=== PATIENT | female | born 1965 | race Caucasian/White ===

== ENCOUNTER 2017-11-23 20:52 | Emergency (ER) | payer OTHER ==
[2017-11-23] MEDS ORDERED: CYCLOBENZAPRINE 10 MG TABLET PO STA (21:41)
[2017-11-23] MEDS ORDERED: HYDROcod/ACETAM 5/325 MG TABLET PO STA (21:41)
--- NOTE | 2017-11-23 21:47 | ED Physician Documentation ---
PD HPI Fall - Stated complaint Stated Complaint: SOA/RIB INJ/PX - Chief complaint Chief Complaint: Back Pain - History obtained from History obtained from: Patient - History of Present Illness Mechanism of injury: Slipped Fall distance: Standing position Where injury occurred: Home Timing - onset: How many weeks ago (3) Injury(ies) location: Back (lower R ribs and back) Pain level max: 8 Pain level now: 8 Quality of pain: Pain, Throbbing, Aching Associated symptoms: No: LOC, AMS, Amnesia, Neck pain, Weakness, Paresthesias, Dyspnea, Nausea / vomiting, Hematemesis, Abdominal distension Symptoms improve with: Rest Worsens with: Movement, Palpation - Additional information Additional information: Patient is a 52-year-old female who presents to the emergency department with right-sided flank pain after a fall approximately 3 weeks ago. She states that it did hurt initially, but has become worse over the past few days. Does have a long history of chronic back pain. States that she is concerned that she may have broken a rib. Review of Systems Constitutional: denies: Fever, Chills Throat: denies: Sore throat Cardiac: denies: Palpitations GI: denies: Abdominal Pain, Vomiting, Diarrhea Skin: denies: Rash Musculoskeletal: denies: Neck pain, Back pain Neurologic: denies: Focal weakness, Numbness, Headache PD PAST MEDICAL HISTORY - Past Medical History Past Medical History: Yes GI: Other Musculoskeletal: Chronic back pain - Past Surgical History Past Surgical History: Yes General: Appendectomy Ortho: Other Cardiovascular: Coronary stent HEENT: Tonsil/Adenoidectomy - Present Medications Home Medications: Ambulatory Orders Medication Instructions Recorded Confirmed Aspirin [Jane Chewable] 81 mg PO 11/19/15 Atorvastatin [Lipitor] 10 mg PO DAILY 11/19/15 11/19/15 Cetirizine HCl [Zyrtec] 10 mg PO 11/19/15 Clopidogrel [Plavix] 75 mg PO DAILY 11/19/15 11/19/15 Levothyroxine [Synthroid] 125 mcg PO QDAC 11/19/15 11/19/15 Lisinopril 11/19/15 Metoprolol Succinate mg PO 11/19/15 Montelukast Sodium [Singulair] 4 mg PO 11/19/15 Cyclobenzaprine [Flexeril] 10 mg PO TID PRN #20 tablet 11/23/17 Hydrocodone/Acetaminophen 1 - 2 each PO Q6H PRN #14 tablet 11/23/17 [Hydrocodon-Acetaminophen 5-325] - Allergies Allergies/Adverse Reactions: Allergies Allergy/AdvReac Type Severity Reaction Status Date / Time No Known Drug Allergies Allergy Verified 11/23/17 21:06 - Social History Does the pt smoke?: No Smoking Status: Never smoker Does the pt drink ETOH?: Yes Does the pt have substance abuse?: No - Immunizations Immunizations are current?: Yes - POLST Patient has POLST: No PD ED PE NORMAL - Vitals Vital signs reviewed: Yes - General General: Alert and oriented X 3, No acute distress - HEENT HEENT: Moist mucous membranes - Neck Neck: Supple, no meningeal sign - Cardiac Cardiac: RRR - Respiratory Respiratory: No respiratory distress, Clear bilaterally - Abdomen Abdomen: Soft, Non tender - Back Back: No CVA TTP, No spinal TTP, Other (Tender to palpation over the right flank , mainly over the musculature over the low thoracic and lumbar spines. No midline tenderness to palpation. No step-off or deformity. Does have some tenderness of the lower posterior ribs on the right side. No crepitus or ecchymosis.) - Derm Derm: Warm and dry, No rash - Extremities Extremities: No deformity, No tenderness to palpate - Neuro Neuro: Alert and oriented X 3, No motor deficit, No sensory deficit Results - Vitals Vitals: Vital Signs - 24 hr 11/23/17 11/23/17 21:02 22:37 Temperature 36.3 C L 36.2 C L Heart Rate 81 65 Respiratory 18 18 Rate Blood Pressure 127/86 H 128/76 O2 Saturation 98 96 Oxygen O2 Source Room air - Labs Labs: Laboratory Tests 11/23/17 22:36 Urine Color YELLOW Urine Clarity HAZY Urine pH 5.5 Ur Specific Branch >=1.030 H Urine Protein NEGATIVE Urine Glucose (UA) NEGATIVE Urine Ketones NEGATIVE Urine Occult Blood SMALL H Urine Nitrite NEGATIVE Urine Bilirubin NEGATIVE Urine Urobilinogen 0.2 (NORMAL) Ur Leukocyte Esterase NEGATIVE Urine RBC 6-10 H Urine WBC 0-3 Ur Squamous Epith Cells FEW Squamous Urine Bacteria Few Ur Microscopic Review INDICATED Urine Culture Comments NOT INDICATED - Rads (name of study) Right ribs with chest x-ray Radiology: Prelim report reviewed, EMP read contemporaneously, See rad report ( No acute abnormality) PD MEDICAL DECISION MAKING - ED course Complexity details: reviewed results, re-evaluated patient, considered differential (no cauda equina, no spinal epidural abscess, no fracture, no aortic dissection or evidence of aneursym rupture), d/w patient ED course: Patient is a 52-year-old female with what appears to be low lumbar spasm and likely rib contusion from a fall 3 weeks ago. Feels better with muscle relaxants and pain medication. She is well-appearing, nontoxic. No midline tenderness. No evidence of epidural abscess, cauda equina or fracture. Patient counseled regarding signs and symptoms for which I believe and urgent re -evaluation would be necessary. Patient with good understanding of and agreement to plan and is comfortable going home at this time This document was made in part using voice recognition software. While efforts are made to proofread this document, sound alike and grammatical errors may occur. - Sepsis Event Vital Signs: Vital Signs - 24 hr 11/23/17 11/23/17 21:02 22:37 Temperature 36.3 C L 36.2 C L Heart Rate 81 65 Respiratory 18 18 Rate Blood Pressure 127/86 H 128/76 O2 Saturation 98 96 Oxygen O2 Source Room air Departure - Departure Disposition: 01 Home, Self Care Clinical Impression: Back spasm Condition: Good Instructions: ED Spasm Back No Trauma Follow-Up: your,doctor in 1 week [Other] Prescriptions: Cyclobenzaprine [Flexeril] 10 mg PO TID PRN #20 tablet PRN Reason: Spasms Hydrocodone/Acetaminophen [Hydrocodon-Acetaminophen 5-325] 1 - 2 each PO Q6H PRN #14 tablet PRN Reason: pain Comments: Return if you worsen. This should improve over the next few days. Follow-up with your doctor for further evaluation and care. Your x-rays are normal tonight. Do not drink alcohol or drive while on narcotic pain medicine. Note that many narcotic pain relievers also contain tylenol/acetaminophen. Please ensure that your total dose of acetaminophen from all sources does not exceed 3 grams (3000mg) per day. You may constipated on this medication, take a stool softener such as "Colace" twice a day while you are on it. Also recommend a [id number] laxative such as senna or MiraLAX any day that you do not have a bowel movement. If you received narcotic pain medication in the emergency department, do not drive or operate machinery for the next 24 hours. Discharge Date/Time: 11/23/17 23:16
--- NOTE | 2017-11-23 22:36 | XRAY Report ---
Procedure Date: 11/23/2017 Accession Number: [id number] / [id number] Procedure: XR - Ribs w/PA Chest RT CPT Code: FULL RESULT: EXAM: RIGHT RIB RADIOGRAPHY EXAM DATE: 11/23/2017 10:15 PM. CLINICAL HISTORY: Fall with right posterior rib pain for 3 weeks. COMPARISON: None. TECHNIQUE: 1 view of the chest and 2 views of the ribs. FINDINGS: Bones: Normal. No fracture or bone lesion. Lungs: No focal opacities. No pneumothorax. No pleural effusions. Mediastinum: Heart and mediastinal contours are unremarkable. Other: None. IMPRESSION: Normal chest and rib radiography. [facility]
[2017-11-23 22:37] VITALS: BP 128/76
[2017-11-23 22:42] LABS: BILIRUBIN,URINE NEGATIVE (NEGATIVE); GLUCOSE, URINE (UA) NEGATIVE (NEGATIVE); KETONES,URINE (UA) NEGATIVE (NEGATIVE); LEUKOCYTE ESTERASE, URINE NEGATIVE (NEGATIVE); NITRITE,URINE NEGATIVE (NEGATIVE); OCCULT BLOOD,URINE SMALL (NEGATIVE); PH,URINE 5.5 PH (5.0-7.5); PROTEIN,URINE NEGATIVE (NEGATIVE); UROBILINOGEN,URINE 0.2 (NORMAL) E.U./dL (NORMAL)
[2017-11-23 22:43] LABS: CLARITY,URINE HAZY (CLEAR)
[2017-11-23 22:51] LABS: BACTERIA,URINE Few /HPF (None Seen); SQUAMOUS EPITHELIAL CELL,UR FEW Squamous (<= Few)
[2017-11-23] MEDS ORDERED: CYCLOBENZAPRINE 10 MG Prepack 2 PO STA (23:07)
== END 2017-11-23 23:16 | disposition home or self-care (01) ==
LOC: ED 20:52
DX: R25.2 Cramp and spasm (principal); Z79.82 Long term (current) use of aspirin
CPT/HCPCS: 71101; 81001; 99283; A9270; 81003; 87086

== ENCOUNTER 2019-07-02 14:21 | Outpatient (CLI) | payer OTHER | END 2019-07-02 14:22 | disposition short-term general hospital (02) | LOC: EMS 14:21 | PROVIDERS: ATTEND Surgery | DX: R07.9 Chest pain, unspecified (principal) | CPT/HCPCS: A0425; A0427 ==

== ENCOUNTER 2019-11-07 23:42 | Outpatient (CLI) | payer OTHER | END 2019-11-07 23:43 | disposition critical access hospital (66) | LOC: EMS 23:42 | PROVIDERS: ATTEND Surgery | DX: I46.9 Cardiac arrest, cause unspecified (principal) | CPT/HCPCS: A0425; A0433 ==

== ENCOUNTER 2019-11-07 23:47 | Emergency (ER) | payer OTHER ==
--- NOTE | 2019-11-07 23:55 | ED Physician Documentation ---
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 Medics arrived to her house approximately 45 minutes prior to ED arrival. EMS found patient outside of her house in the grass, awake but struggling to breathe ("guppy breathing", per medics). They describe her breath sounds as nearly absent with wheezing. Patient was too dyspneic to be able to provide any useful/substantive HPI. EMS started a neb treatment, but shortly after initiating this intervention, patient went into respiratory arrest and subsequently rapidly deteriorated to cardiac arrest (PEA). CPR initiated by medics, and by the time of ED arrival, patient has IV, is intubated (ETT), and has ROSC after having received a third dose of IV epine phrine. She has not received any other medications including sedatives or paralytics. She arrives intubated, unresponsive, but with stable vital signs. Review of Systems Unable to obtain: Unresponsive, Intubated PD PAST MEDICAL HISTORY - Past Medical History Past Medical History: Yes Cardiovascular: Coronary artery disease GI: Other Musculoskeletal: Chronic back pain - Past Surgical History Past Surgical History: Yes General: Appendectomy Ortho: Other Cardiovascular: Coronary stent HEENT: Tonsil/Adenoidectomy - Present Medications Home Medications: Ambulatory Orders Medication Instructions Recorded Confirmed Aspirin [Jane Chewable] 81 mg PO 11/19/15 Atorvastatin [Lipitor] 10 mg PO DAILY 11/19/15 11/19/15 Cetirizine HCl [Zyrtec] 10 mg PO 11/19/15 Clopidogrel [Plavix] 75 mg PO DAILY 11/19/15 11/19/15 Levothyroxine [Synthroid] 125 mcg PO QDAC 11/19/15 11/19/15 Metoprolol Succinate mg PO 11/19/15 Montelukast Sodium [Singulair] 4 mg PO 11/19/15 lisinopriL [Lisinopril] 11/19/15 Cyclobenzaprine [Flexeril] 10 mg PO TID PRN #20 tablet 11/23/17 Hydrocodone/Acetaminophen 1 - 2 each PO Q6H PRN #14 tablet 11/23/17 [Hydrocodon-Acetaminophen 5-325] - Allergies Allergies/Adverse Reactions: Allergies Allergy/AdvReac Type Severity Reaction Status Date / Time No Known Drug Allergies Allergy Verified 11/08/19 01:52 - Social History Does the pt smoke?: No Smoking Status: Never smoker Does the pt drink ETOH?: Yes Does the pt have substance abuse?: No - Immunizations Immunizations are current?: Yes - POLST Patient has POLST: No PD ED PE NORMAL - Vitals Vital signs reviewed: Yes - General General: Well developed/nourished - Cardiac Cardiac: RRR, No murmur - Respiratory Respiratory: No respiratory distress - Abdomen Abdomen: Soft, Non distended - Derm Derm: Normal color, Warm and dry - Extremities Extremities: No edema PD ED PE EXPANDED - General General: Unresponsive, Other (intubated (ETT)) - HEENT HEENT: Atraumatic, Other (pupils are midsize, sluggishly and minimally reactive to light) - Neck Neck: No: JVD present - Cardiac Cardiac: Regular Rate, Regular Rhythm (occasional extra beats) - Respiratory Respiratory: Other (bilateral course breath sounds with end-expiratory wheeze) - GCS Eye Opening: None Motor: None Verbal: None (intubated) Total: 3 Results - Vitals Vitals: Vital Signs - 24 hr 11/07/19 11/07/19 11/07/19 23:48 23:53 23:59 Temperature 37.3 C 37.3 C Heart Rate 76 L 67 54 L Respiratory 22 L 12 20 Rate Blood Pressure 107/71 H 107/71 58/33 L O2 Saturation 91 L 97 100 11/08/19 11/08/19 11/08/19 00:03 00:08 00:12 Temperature 34.7 C L 34.8 C L Heart Rate 84 105 H 97 Respiratory 16 13 17 Rate Blood Pressure 96/62 98/58 L 119/71 O2 Saturation 98 98 100 11/08/19 11/08/19 11/08/19 00:23 00:28 00:30 Temperature 34.9 C L Heart Rate 118 H 102 H 95 Respiratory 20 22 Rate Blood Pressure 99/73 O2 Saturation 97 97 11/08/19 11/08/19 11/08/19 00:37 00:43 00:51 Temperature 34.6 C L 34.3 C L Heart Rate 98 89 85 Respiratory 23 18 23 Rate Blood Pressure 98/71 82/59 L 71/60 L O2 Saturation 97 95 93 11/08/19 11/08/19 11/08/19 00:58 01:01 01:03 Temperature 4.2 C L 34.0 C L Heart Rate 102 H 75 73 Respiratory 19 20 19 Rate Blood Pressure 80/60 L 80/61 L 86/67 L O2 Saturation 94 94 11/08/19 11/08/19 11/08/19 01:07 01:12 01:23 Temperature 34.0 C L Heart Rate 70 70 76 Respiratory 30 H 20 22 Rate Blood Pressure 91/72 100/77 117/66 O2 Saturation 97 89 L 97 11/08/19 11/08/19 11/08/19 01:24 01:27 01:40 Temperature 33.9 C L 33.9 C L 34.0 C L Heart Rate 77 79 71 Respiratory 29 H 22 20 Rate Blood Pressure 104/91 H 118/96 H 109/77 O2 Saturation 90 L 99 92 11/08/19 01:54 Temperature 34.0 C L Heart Rate 71 Respiratory 20 Rate Blood Pressure 115/78 O2 Saturation 94 Oxygen O2 Source Mechanical ventilator - EKG (time done) No standard instances Rate: Rate (enter#) (70) Rhythm: NSR [place]: Normal Intervals: Normal [place], Wide QRS (NSIVCD) QRS: Normal Ischemia: ST depression (V2-V6, most pronounced in V3, V4) - Labs Labs: Laboratory Tests 11/07/19 11/07/19 11/07/19 23:37 23:37 23:37 WBC 9.8 RBC 3.97 L Hgb 12.5 Hct 42.1 MCV 106.0 H MCH 31.5 H MCHC 29.7 L RDW 12.8 Plt Count 377 MPV 8.9 Neut # (Auto) Not Reportable Lymph # (Auto) Not Reportable [place] # (Auto) Not Reportable Eos # (Auto) Not Reportable Baso # (Auto) Not Reportable Absolute Nucleated RBC Not Reportable Total Counted 100 Band Neuts % (Manual) 0 Abnorm Lymph % (Manual) 3 Myelocytes % 1 H Nucleated RBC % Not Reportable Neutrophils # (Manual) 1.6 Lymphocytes # (Manual) 7.9 H Monocytes # (Manual) 0.1 Eosinophils # (Manual) 0.1 Basophils # (Manual) 0.0 Differential Comment MANUAL DIFFERENTIAL WBC Morphology NORMAL APPEARANCE Platelet Estimate NORMAL (130-450,000) Platelet Morphology NORMAL APPEARANCE RBC Morph Micro Appear NORMAL APPEARANCE PT 11.9 INR 1.0 APTT 33.6 H Bld Gas Analysis Time Sample Site ABG pH ABG pCO2 ABG pO2 ABG HCO3 ABG Total CO2 ABG O2 Saturation ABG Base Excess Toribio Test Respiration Rate O2 Delivery Device Vent Mode FiO2 Tidal Volume PEEP Pressure Support Vent Sodium 139 Potassium 3.4 L Chloride 103 Carbon Dioxide 18 L Anion Gap 18.0 H BUN 11 Creatinine 1.4 H Estimated GFR (MDRD) 39 L Glucose 269 H Lactic Acid Calcium 9.0 Total Bilirubin 0.7 AST 26 ALT 21 Alkaline Phosphatase 78 Troponin I High Sens B-Natriuretic Peptide Total Protein 6.7 Albumin 3.6 Globulin 3.1 Albumin/Globulin Ratio 1.2 Lipase 32 Ethyl Alcohol < 5.0 11/07/19 11/07/19 11/07/19 23:37 23:37 23:53 WBC RBC Hgb Hct MCV MCH MCHC RDW Plt Count MPV Neut # (Auto) Lymph # (Auto) [place] # (Auto) Eos # (Auto) Baso # (Auto) Absolute Nucleated RBC Total Counted Band Neuts % (Manual) Abnorm Lymph % (Manual) Myelocytes % Nucleated RBC % Neutrophils # (Manual) Lymphocytes # (Manual) Monocytes # (Manual) Eosinophils # (Manual) Basophils # (Manual) Differential Comment WBC Morphology Platelet Estimate Platelet Morphology RBC Morph Micro Appear PT INR APTT Bld Gas Analysis Time Sample Site ABG pH ABG pCO2 ABG pO2 ABG HCO3 ABG Total CO2 ABG O2 Saturation ABG Base Excess Toribio Test Respiration Rate O2 Delivery Device Vent Mode FiO2 Tidal Volume PEEP Pressure Support Vent Sodium Potassium Chloride Carbon Dioxide Anion Gap BUN Creatinine Estimated GFR (MDRD) Glucose Lactic Acid > 10.0 H* Calcium Total Bilirubin AST ALT Alkaline Phosphatase Troponin I High Sens 148.4 H* B-Natriuretic Peptide 967 H Total Protein Albumin Globulin Albumin/Globulin Ratio Lipase Ethyl Alcohol 11/08/19 00:12 WBC RBC Hgb Hct MCV MCH MCHC RDW Plt Count MPV Neut # (Auto) Lymph # (Auto) [place] # (Auto) Eos # (Auto) Baso # (Auto) Absolute Nucleated RBC Total Counted Band Neuts % (Manual) Abnorm Lymph % (Manual) Myelocytes % Nucleated RBC % Neutrophils # (Manual) Lymphocytes # (Manual) Monocytes # (Manual) Eosinophils # (Manual) Basophils # (Manual) Differential Comment WBC Morphology Platelet Estimate Platelet Morphology RBC Morph Micro Appear PT INR APTT Bld Gas Analysis Time 0021 Sample Site RIGHT RADIAL ABG pH 6.90 L* ABG pCO2 53 H ABG pO2 229 H* ABG HCO3 10.1 L ABG Total CO2 11.7 L* ABG O2 Saturation 98 ABG Base Excess -22.9 L Toribio Test POSITIVE Respiration Rate 20 O2 Delivery Device VENTILATOR Vent Mode SIMV FiO2 100.00 Tidal Volume 350 PEEP 5 Pressure Support Vent 12 Sodium Potassium Chloride Carbon Dioxide Anion Gap BUN Creatinine Estimated GFR (MDRD) Glucose Lactic Acid Calcium Total Bilirubin AST ALT Alkaline Phosphatase Troponin I High Sens B-Natriuretic Peptide Total Protein Albumin Globulin Albumin/Globulin Ratio Lipase Ethyl Alcohol - Rads (name of study) cxr Radiology: Prelim report reviewed, See rad report PD MEDICAL DECISION MAKING - ED course Complexity details: reviewed old records (I was able to access an EMS report from June 2019 which indicates c/o chest pain, was taken to [facility]. The field EKGs associated with this EMS assessment (June,) show marked inferior lead ST elevations. ), reviewed results, re-evaluated patient, considered differential ED course: Patient started to show some movement of her legs and thus propofol bolused and started as a drip. However, later in ED stay, her blood pressure deteriorated to as low as 50s SBP; this initially responded to IV fluids and cessation of propofol, but further into her ED stay, she required norepinephrine for recurrent hypotension (this intervention did improve her blood pressure to normotensive levels). [facility] contacted. There was some delay in hearing back from them, but when they did call back, they reported no ICU beds were available. D/W Dr. 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 - Critical Care Time(min): 80 Time Includes: Direct patient care, Review records, Reassess patient, Document care, Coordinate care, Medical consult, See progress note Data interpretation: Labs, Pulse ox, ABG, CXR, Cardiac output, See progress note Procedures included in critical care time: See progress note Procedures excluded from critical care time: See progress note Departure - Departure Disposition: 02 Transfer Acute Care Hosp Clinical Impression: Cardiopulmonary arrest Condition: Critical Discharge Date/Time: 11/08/19 01:59
[2019-11-08] MEDS ORDERED: SODIUM CHLORIDE 0.9% 1,000 ML IV STA
[2019-11-08 00:15] LABS: BASOPHILS % (AUTO) 0.4 %; EOSINOPHILS % (AUTO) 0.8 %; HGB - HEMOGLOBIN 12.5 g/dL (12.0-16.0); LYMPHOCYTES % (AUTO) 70.6 %; MEAN CORPUSCULAR HEMOGLOBIN 31.5 pg (27.0-31.0); MEAN CORPUSCULAR HGB CONC 29.7 g/dL (32.0-36.0); MEAN PLATELET VOLUME 8.9 fL (7.9-10.8); MONOCYTES % (AUTO) 13.9 %; NEUTROPHILS % (AUTO) 13.3 %; PLT - PLATELET COUNT 377 10^3/uL (130-450); RED BLOOD COUNT 3.97 10^6/uL (4.20-5.40); RED CELL DISTRIBUTION WIDTH 12.8 % (12.0-15.0); WHITE BLOOD COUNT 9.8 x10^3/uL (4.8-10.8)
[2019-11-08] MEDS ORDERED: PROPOFOL 500 MG/50 ML 500 MG/50 ML VIAL IV STA (00:15)
[2019-11-08 00:20] LABS: PT - PROTHROMBIN TIME 11.9 secs (9.9-12.6)
[2019-11-08] MEDS ORDERED: PROPOFOL 200 MG/20 ML VIAL IVP ONE ×2 (00:20→00:22)
[2019-11-08 00:24] LABS: ALBUMIN 3.6 g/dL (3.2-5.5); ALBUMIN/GLOBULIN RATIO 1.2 (1.0-2.2); ALKALINE PHOSPHATASE 78 IU/L (42-121); ALT ALANINE AMINOTRANSFERASE 21 IU/L (10-60); AST ASPARTATE AMINOTRANSFERASE 26 IU/L (10-42); BILIRUBIN,TOTAL 0.7 mg/dL (0.2-1.0); BUN - BLOOD UREA NITROGEN 11 mg/dL (6-20); CARBON DIOXIDE - CO2 18 mmol/L (21-32); CHLORIDE 103 mmol/L (101-111); CREATININE 1.4 mg/dL (0.4-1.0); GLUCOSE 269 mg/dL (70-100); LIPASE 32 U/L (22-51); SODIUM 139 mmol/L (135-145); TOTAL PROTEIN 6.7 g/dL (6.7-8.2)
[2019-11-08 00:27] LABS: PARTIAL THROMBOPLASTIN TIME 33.6 secs (24.9-33.3)
[2019-11-08 00:41] LABS: BAND NEUTROPHILS % (MANUAL) 0 %
[2019-11-08 00:43] LABS: ABNORMAL LYMPHS % (MANUAL) 3 %; EOSINOPHILS # (MANUAL) 0.1 10^3/uL (0-0.7); LYMPHOCYTES # (MANUAL) 7.9 10^3/uL (1.5-3.5); LYMPHOCYTES % (MANUAL) 78 %; MONOCYTES # (MANUAL) 0.1 10^3/uL (0.0-1.0); MYELOCYTES % (MANUAL) 1 %
[2019-11-08 00:44] LABS: DIFFERENTIAL COMMENT MANUAL DIFFERENTIAL; PLATELET ESTIMATE, MANUAL NORMAL (130-450,000) (NORMAL); PLATELET MORPHOLOGY NORMAL APPEARANCE (NORMAL); RBC MORPHOLOGY (MULTIPLE) NORMAL APPEARANCE (NORMAL)
[2019-11-08 01:58] VITALS: BP 115/78
[2019-11-08] MEDS ORDERED: PROPOFOL 200 MG/20 ML VIAL IVP STA (02:08)
[2019-11-08 04:23] LABS: ABG BASE EXCESS -22.9 mmol/L (-2.0-3.0); ABG HCO3 10.1 mmol/L (22.0-26.0); ABG OXYGEN SATURATION 98 % (94-98); ABG PCO2 53 mmHg (34-45); ABG PO2 229 mmHg (80-100); ABG TCO2 11.7 MMOL/L (21.0-29.0); ALLEN TEST POSITIVE
--- NOTE | 2019-11-08 10:14 | XRAY Report ---
Reason: CPR Procedure Date: 11/08/2019 Accession Number: [id number] / [id number] Procedure: XR - Chest 1 View X-Ray CPT Code: 54592 Final Report FULL RESULT: PROCEDURE: Chest 1 View X-Ray INDICATIONS: CPR TECHNIQUE: One view of the chest was acquired. COMPARISON: X-ray Ribs 11/23/2017 FINDINGS: Surgical changes and devices: Endotracheal tube is present approximately 1.4 cm superior to the kim. Lungs and pleura: No pleural effusions or pneumothorax. There is an overall appearance of increased pulmonary vascularity. Mediastinum: Mediastinal contours appear normal. Heart size is normal. Bones and chest wall: No suspicious bony lesions. Overlying soft tissues appear unremarkable. IMPRESSION: 1. Support lines as above. 2. Increased vascularity suggestive of edema. Reviewed by: Elvira Mckeon MD on 11/08/2019 10:09 AM PDT Approved by: Elvira Mckeon MD on 11/08/2019 10:09 AM PDT Station ID: [id number]
--- NOTE | 2019-11-19 21:36 | ED Physician Documentation ---
PD HPI CHEST PAIN - Stated complaint Stated Complaint: CPR - Chief complaint Chief Complaint: Resp PD PAST MEDICAL HISTORY - Past Medical History Past Medical History: Yes Cardiovascular: Coronary artery disease GI: Other Musculoskeletal: Chronic back pain - Past Surgical History Past Surgical History: Yes General: Appendectomy Ortho: Other Cardiovascular: Coronary stent HEENT: Tonsil/Adenoidectomy - Present Medications Home Medications: Ambulatory Orders Medication Instructions Recorded Confirmed Aspirin [Jane Chewable] 81 mg PO 11/19/15 Atorvastatin [Lipitor] 10 mg PO DAILY 11/19/15 11/19/15 Cetirizine HCl [Zyrtec] 10 mg PO 11/19/15 Clopidogrel [Plavix] 75 mg PO DAILY 11/19/15 11/19/15 Levothyroxine [Synthroid] 125 mcg PO QDAC 11/19/15 11/19/15 Metoprolol Succinate mg PO 11/19/15 Montelukast Sodium [Singulair] 4 mg PO 11/19/15 lisinopriL [Lisinopril] 11/19/15 Cyclobenzaprine [Flexeril] 10 mg PO TID PRN #20 tablet 11/23/17 Hydrocodone/Acetaminophen 1 - 2 each PO Q6H PRN #14 tablet 11/23/17 [Hydrocodon-Acetaminophen 5-325] - Allergies Allergies/Adverse Reactions: Allergies Allergy/AdvReac Type Severity Reaction Status Date / Time No Known Drug Allergies Allergy Verified 11/08/19 01:52 - Social History Does the pt smoke?: No Smoking Status: Never smoker Does the pt drink ETOH?: Yes Does the pt have substance abuse?: No - Immunizations Immunizations are current?: Yes - POLST Patient has POLST: No Results - Vitals Vitals: Oxygen O2 Source Mechanical ventilator - Labs Labs: Laboratory Tests 11/07/19 11/07/19 11/07/19 23:37 23:37 23:37 WBC 9.8 RBC 3.97 L Hgb 12.5 Hct 42.1 MCV 106.0 H MCH 31.5 H MCHC 29.7 L RDW 12.8 Plt Count 377 MPV 8.9 Neut # (Auto) Not Reportable Lymph # (Auto) Not Reportable [place] # (Auto) Not Reportable Eos # (Auto) Not Reportable Baso # (Auto) Not Reportable Absolute Nucleated RBC Not Reportable Total Counted 100 Band Neuts % (Manual) 0 Abnorm Lymph % (Manual) 3 Myelocytes % 1 H Nucleated RBC % Not Reportable Neutrophils # (Manual) 1.6 Lymphocytes # (Manual) 7.9 H Monocytes # (Manual) 0.1 Eosinophils # (Manual) 0.1 Basophils # (Manual) 0.0 Differential Comment MANUAL DIFFERENTIAL WBC Morphology NORMAL APPEARANCE Platelet Estimate NORMAL (130-450,000) Platelet Morphology NORMAL APPEARANCE RBC Morph Micro Appear NORMAL APPEARANCE PT 11.9 INR 1.0 APTT 33.6 H Bld Gas Analysis Time Sample Site ABG pH ABG pCO2 ABG pO2 ABG HCO3 ABG Total CO2 ABG O2 Saturation ABG Base Excess Toribio Test Respiration Rate O2 Delivery Device Vent Mode FiO2 Tidal Volume PEEP Pressure Support Vent Sodium 139 Potassium 3.4 L Chloride 103 Carbon Dioxide 18 L Anion Gap 18.0 H BUN 11 Creatinine 1.4 H Estimated GFR (MDRD) 39 L Glucose 269 H Lactic Acid Calcium 9.0 Total Bilirubin 0.7 AST 26 ALT 21 Alkaline Phosphatase 78 Troponin I High Sens B-Natriuretic Peptide Total Protein 6.7 Albumin 3.6 Globulin 3.1 Albumin/Globulin Ratio 1.2 Lipase 32 Ethyl Alcohol < 5.0 11/07/19 11/07/19 11/07/19 23:37 23:37 23:53 WBC RBC Hgb Hct MCV MCH MCHC RDW Plt Count MPV Neut # (Auto) Lymph # (Auto) [place] # (Auto) Eos # (Auto) Baso # (Auto) Absolute Nucleated RBC Total Counted Band Neuts % (Manual) Abnorm Lymph % (Manual) Myelocytes % Nucleated RBC % Neutrophils # (Manual) Lymphocytes # (Manual) Monocytes # (Manual) Eosinophils # (Manual) Basophils # (Manual) Differential Comment WBC Morphology Platelet Estimate Platelet Morphology RBC Morph Micro Appear PT INR APTT Bld Gas Analysis Time Sample Site ABG pH ABG pCO2 ABG pO2 ABG HCO3 ABG Total CO2 ABG O2 Saturation ABG Base Excess Toribio Test Respiration Rate O2 Delivery Device Vent Mode FiO2 Tidal Volume PEEP Pressure Support Vent Sodium Potassium Chloride Carbon Dioxide Anion Gap BUN Creatinine Estimated GFR (MDRD) Glucose Lactic Acid > 10.0 H* Calcium Total Bilirubin AST ALT Alkaline Phosphatase Troponin I High Sens 148.4 H* B-Natriuretic Peptide 967 H Total Protein Albumin Globulin Albumin/Globulin Ratio Lipase Ethyl Alcohol 11/08/19 00:12 WBC RBC Hgb Hct MCV MCH MCHC RDW Plt Count MPV Neut # (Auto) Lymph # (Auto) [place] # (Auto) Eos # (Auto) Baso # (Auto) Absolute Nucleated RBC Total Counted Band Neuts % (Manual) Abnorm Lymph % (Manual) Myelocytes % Nucleated RBC % Neutrophils # (Manual) Lymphocytes # (Manual) Monocytes # (Manual) Eosinophils # (Manual) Basophils # (Manual) Differential Comment WBC Morphology Platelet Estimate Platelet Morphology RBC Morph Micro Appear PT INR APTT Bld Gas Analysis Time 0021 Sample Site RIGHT RADIAL ABG pH 6.90 L* ABG pCO2 53 H ABG pO2 229 H* ABG HCO3 10.1 L ABG Total CO2 11.7 L* ABG O2 Saturation 98 ABG Base Excess -22.9 L Toribio Test POSITIVE Respiration Rate 20 O2 Delivery Device VENTILATOR Vent Mode SIMV FiO2 100.00 Tidal Volume 350 PEEP 5 Pressure Support Vent 12 Sodium Potassium Chloride Carbon Dioxide Anion Gap BUN Creatinine Estimated GFR (MDRD) Glucose Lactic Acid Calcium Total Bilirubin AST ALT Alkaline Phosphatase Troponin I High Sens B-Natriuretic Peptide Total Protein Albumin Globulin Albumin/Globulin Ratio Lipase Ethyl Alcohol Departure - Departure Disposition: 02 Transfer Acute Care Hosp Clinical Impression: Cardiopulmonary arrest Condition: Critical Discharge Date/Time: 11/08/19 01:59
== END 2019-11-08 01:59 | disposition short-term general hospital (02) ==
LOC: EDUNIT# → EDBD → ED 23:47
DX: I46.9 Cardiac arrest, cause unspecified (principal); I95.9 Hypotension, unspecified; I25.10 Atherosclerotic heart disease of native coronary artery without angina pectoris; Z99.11 Dependence on respirator [ventilator] status
CPT/HCPCS: 36415; 36600; 51702; 71045; 80053; 80320; 82803; 83605; 83690; 83880; 84484; 85025; 85610; 85730; 93005; 94002; 99291; 99292